=== PATIENT | male | born 1980 | race Caucasian/White ===

== ENCOUNTER 2016-05-19 15:25 | Day surgery (SDC) | payer MEDICAID ==
[2016-05-19] VITALS (11 sets, daily range): BP systolic 126–151; BP diastolic 76–94; PULSE 113–121; RESP 9–20; O2SAT 93–100
[~2016-05-19] VITALS: Ht 182.9 cm; Wt 99.1 kg
--- NOTE | 2016-05-19 17:28 | ED.REPORT ---
HPI- Male Date of Service May 19, 2016 ED Provider: Dr. Corbin Pt is a 35 y/o male presenting to the ED c/o foreskin pain onset 1 week ago. He states that his foreskin has been unable to retract over his penis with associated erythema and pain for 1 week. He was sent here by a Urology clinic because the urologist was unable to reduce the foreskin in the clinic without analgesia. Pt denies fever, chills. Nursing Notes Stated Complaint: PAIN IN GROIN Chief Complaint: General Complaint Nursing Notes Reviewed: Yes Allergies: Coded Allergies: No Known Drug Allergies (Verified Allergy, Unknown, 05/19/16) Scheduled PRN Hydrocodone-Acetaminophen 5-325 mg (Hydrocodone-Acetaminophen 5-325 mg) 1 Each Tablet 1 TABLET PO Q4H PRN PRN For Pain General Time Seen by MD: 17:27 Chief Complaint Foreskin problem... (Unable to retract) Hx Obtained From: Patient Arrived By: Walk-in Onset Occurred: 1 week ago Symptom Duration: Since onset Location: : Penis Quality: Painful Severity: Current: Moderate Severity: Maximum: Moderate Past Medical History Past Medical History None reported Past Surgical History None reported Smoking History Unknown if Ever Smoker Ambulatory Status Independent Review of Systems Review of Systems Note: +foreskin pain Constitutional: Denies: Chills, Fever Skin: Reports Rash Complete sys rev & neg: except as marked. Physical Exam Initial Vital Signs Vital Signs (First) Date Time Temp Pulse Resp B/P Pulse Ox O2 Delivery O2 Flow Rate FiO2 05/19/16 15:33 37.0 120 16 137/79 99 Room Air Initial VS: Reviewed, Vital signs abnormal Head / Eyes: Atraumatic, Normocephalic, PERRL ENT: Mucous membranes moist, Conjunctiva normal, No scleral icterus Neck: Supple, Full range of motion Respiratory: No respiratory distress Cardiovascular: Intact distal pulses Abdomen / GI: Soft, Non-tender Skin: Warm, Dry, No cyanosis Neurologic: Alert, Oriented, Nonfocal Psychiatric: Mood/affect normal, Behavior normal, Normal thought content Male Genitourinary: Atraumatic Phimosis present Swollen glans Diffuse erythema Re-Eval/Medical Decision Med Decision/Clinical Course 35 yo m with paraphimosis x 1 week. Urology, Dr Becker consulted and unable to reduce in ER. Will go to OR for surgical intervention. Consultation : Referral / Consult Name: Ramón Becker MD Consulted With: Urology Call Returned at: 17:34 Forensic Science Technician: Will see patient, Agrees with eval, Agrees with plan Note: He will come to the ED to attempt to reduce the foreskin with aid of analgesia. Counseled Regarding: Diagnosis, Lab results, Need for follow-up, When/why to return to ED Discharge & Departure Impression: Primary Impression: Phimosis Disposition: Home Discharge Condition All VS Reviewed: Yes Condition: Stable Referrals: Ramón Becker MD [facility] Scribe Attestation Portions of this note were transcribed by Gustavo Joy. I, Dr. Corbin personally performed the history, physical exam and medical decision-making; I reviewed and confirmed the accuracy of the information in the transcribed note. Signed by Maria Alejandra Turpin, 05/19/16 - 1800 copies to: Ramón Becker MD, Ben M MD May 19, 2016 17:28 GUSTAVO JOY May 19, 2016 17:38
[2016-05-19] MEDS ORDERED: HYDROmorphone 0.5 mg/0.5 mL iSecure Syringe IVPUSH PRN (18:40)
[2016-05-19] MEDS ORDERED: HYDR-4003 PO (18:43)
[2016-05-19] MEDS ORDERED: fentaNYL-PF 50 mCg/mL 2 mL Inj ONE (19:18)
[2016-05-19] MEDS ORDERED: Propofol 10,000 mCg/mL 20 mL Inj ONE ×2 (19:18)
[2016-05-19] MEDS ORDERED: Lidocaine PF 1% 30 mL Inj ONE (19:18)
[2016-05-19] MEDS ORDERED: Ondansetron 2 mg/mL 2 mL Inj ONE ×2 (19:18)
[2016-05-19] MEDS ORDERED: Lactated Ringer's 1,000 ML IV SCH (19:48)
[2016-05-19] MEDS ORDERED: Lactated Ringer's 500 ML IV PRN (19:48)
--- NOTE | 2016-05-19 19:48 | PCM.HPANE ---
Patient Data Date of Service: May 19, 2016 Surgeon Admitting Provider: Attending Provider:Ramón Becker MD Primary Care Physician:Rahul Other Provider:Sarah Richard Anesthesia Reason for Visit Phimosis Ht/WT & BMI Height (Feet): 6 Height (Inches): 0 Weight (Kilograms): 99.09 Body Mass Index Allergies Coded Allergies: No Known Drug Allergies (Verified Allergy, Unknown, 05/19/16) Diabetes History Hx Diabetes?: No MRSA MRSA: No Medications Hypertension Medication: No Home Meds Incl Beta Tyler: No Active Scripts Hydrocodone-Acetaminophen 5-325 mg 1 Each Tablet1 Tablet PO Q4H PRN For Pain # 10 TABLET Prov:Michele Corbin MD 05/19/16 History History of ENT Problems?: No Hx of Heart Problems?: No Cardiovascular History: Denies:: Congestive Heart Failure Hypertension Hx of Respiratory Problem?: No Respiratory History: Denies:: Tuberculosis Hx Neurologic Problems?: No Hx of GI Problems?: No Hx of Problems?: No Other History/Comment phimosis Hx Musculoskeletal Problems?: No Hx of Psycho/Social Problems?: No Hx Surgeries?: No Hx Any Other Health Problems?: No Hx Diabetes: No Hx Alcohol Use: NoHx Substance Use: Yes (meth, last 7 days ago) Smoking Status: Unknown if Ever Smoker Have You Smoked inLast 12 mo: Yes Stop/Bang Treated for Sleep Apnea?: No Do You Have a CPAP Machine?: No MARIA INES Risk Assessment: Low Risk, <3 Yes Risk Assessment Category Category 1A: Patient has history of documented sleep apnea, and HAS NOT received any narcotic, sedative or anesthesia administration during this stay. Category 1B: Patient has history of documented sleep apnea, and HAS received any narcotic , sedative or anesthesia administration during this stay Category 2: Patient has SUSPECTED Obstructive Sleep Apnea, and HAS received any narcotic , sedative or anesthesia administration during this stay. Category 3: Patient has SUSPECTED Obstructive Sleep Apnea and HAS NOT received narcotic, sedative or anesthesia administration during this stay. Category 4: Outpatient in Procedural Areas with known sleep apnea or who screen positive for High Risk via the STOP/BANG questionnaire. Exam Exam Vital Signs Vital Signs Date Time Temp Pulse Resp B/P Pulse Ox O2 Delivery O2 Flow Rate FiO2 05/19/16 19:22 37.2 113 20 151/89 93 Room Air 2/23/17 19:21 37.2 113 20 151/89 93 Room Air 05/19/16 15:33 37.0 120 16 137/79 99 Room Air General Appearance: Alert, Oriented X3, Cooperative HEENT/AIRWAY: MP 3, Neck Movement (OK), Mouth Opening (Wide) Lungs: Clear to Auscultation, Normal Air Movement Heart: Regular Rate/Rhythm, Normal S1, Normal S2 Plan Impression Patient chart reviewed, patient interviewed and anesthestic plan with risks, benefits, and alternatives discussed, and informed consent obtained. NPO Status: > 8 hours ASA Physical Status: ASA2 Mod Systemic Disease Anesthetic Plan: GA Bene/Risks/Altern/Consents: Yes HP Complete Prior to Induction: Yes Jelani Macias MD May 19, 2016 19:48
[2016-05-19] MEDS ORDERED: EPHEDrine Sulfate 50 mg/mL Inj IVPUSH PRN (19:50)
[2016-05-19] MEDS ORDERED: MetoCLOpramide 5 mg/mL 2 mL Inj IVPUSH PRN (19:50)
[2016-05-19] MEDS ORDERED: HYDROmorphone 1 mg/mL Inj IVPUSH PRN (19:50)
[2016-05-19] MEDS ORDERED: fentaNYL-PF 50 mCg/mL 2 mL Inj IVPUSH PRN (19:50)
[2016-05-19] MEDS ORDERED: Labetalol 5 mg/mL 4 mL Inj IV PRN (19:50)
[2016-05-19] MEDS ORDERED: Phenylephrine 10,000 mCg/mL Inj IVPUSH PRN (19:50)
[2016-05-19] MEDS ORDERED: Dexamethasone 4 mg/mL Inj IVPUSH PRN (19:50)
[2016-05-19] MEDS ORDERED: Atropine 0.4 mg/mL Inj IVPUSH PRN (19:50)
[2016-05-19] MEDS ORDERED: hydrALAZINE 20 mg/mL Inj IVPUSH PRN (19:50)
[2016-05-19] MEDS ORDERED: Ondansetron 2 mg/mL 2 mL Inj IVPUSH PRN (19:50)
[2016-05-19] MEDS ORDERED: Bupivacaine-MPF 0.25% 30 mL Inj INFILTRATE ONE (19:54)
--- NOTE | 2016-05-19 20:37 | HP ---
[address] [address] HISTORY AND PHYSICAL PATIENT: SRINIVAS FRY : 1980 MR#: [id number] ADMIT: 05/19/2016 JOB ID: [id number] CHIEF COMPLAINT: Penile pain and swelling. HISTORY OF PRESENT ILLNESS: The patient is a 35-year-old male with penile pain and swelling. The patient states that one week ago he became unable to reduce the foreskin and thus had inability to reduce foreskin and developed penile swelling and subsequently penile pain. The patient states that this penile swelling and pain have been worsening. The patient initially presented to the Urgent Care in [place] where manual reduction of paraphimosis was unsuccessful. The patient now presents to the emergency department here at [facility]. The patient reports penile pain, penile swelling, inability to reduce the foreskin. The patient reports no dysuria, no gross hematuria. Mild difficulty voiding. No fever, no chills. No nausea, no vomiting. The patient reports no prior history of problems with the foreskin. No prior history of paraphimosis. The patient is uncircumcised. PAST MEDICAL HISTORY: None. PAST SURGICAL HISTORY: None. MEDICATIONS: None. ALLERGIES: No known drug allergies. SOCIAL HISTORY: The patient is a smoker. FAMILY HISTORY: Noncontributory. REVIEW OF SYSTEMS: Constitutional: No fever, no chills. GI: No nausea, no vomiting. PHYSICAL EXAMINATION: Vital signs: Afebrile, temperature 37.0 degrees Celsius. Heart rate 120, respiratory rate 16, BP 137/79, O2 sat 99% on room air. General: Well-developed well-nourished male in no acute distress. HEENT: Head: Normocephalic, atraumatic. Eyes: Extraocular muscles intact. Neck: Supple. Chest: No use of accessory muscles. Nonlabored respirations. No retractions. Clear to auscultation bilaterally. Heart: Positive for tachycardia. Regular rhythm. Abdomen: Soft, nondistended, nontender. No palpable masses. No rebound, no guarding. Skin: Warm and dry. : Testes bilaterally descended. No masses. Scrotum normal. Urethral meatus normal. Penis uncircumcised. Moderate to severe distal foreskin and glanular edema with foreskin seen to be in the retracted position with a small cut in the foreskin seen superficially on the dorsal aspect. Neurologic: Sensation grossly intact to touch. Normal speech. Psychiatric: Alert and oriented x3. Normal mood and affect. LABORATORIES: None. BEDSIDE PROCEDURE NOTE: Patient was given morphine sulfate IV and subsequently given Dilaudid IV for pain medication. The paraphimosis was attempted to be reduced manually, first by compressing the edema in the foreskin and glans, and then manually attempting to reduce the paraphimosis; however, this was unsuccessful. Then ice was applied to the penis by placing the penis within a glove filled with ice for a period of 5-10 minutes. The ice was removed and the edema was compressed in the glans and the foreskin and the foreskin was again attempted to be reduced manually; however, this was unsuccessful. ASSESSMENT: Significant paraphimosis, status post unsuccessful reduction of paraphimosis at the bedside. PLAN: The risks, benefits, and alternatives of surgery, specifically reduction of paraphimosis and dorsal slit under anesthesia, were discussed with the patient. All questions were answered. The patient wishes to have surgery as recommended. The patient has not had anything to eat or to drink since this morning and the patient has been placed on n.p.o. status. The patient will have urgent surgery this evening, specifically reduction of paraphimosis and dorsal slit. Will give the patient Ancef IV antibiotics preoperatively. The patient will be able to be discharged home postoperatively. The case was discussed with ER Dr. Michele Corbin. SYED
[2016-05-19] MEDS ORDERED: Lactated Ringer's 1,000 ML IV ONE (21:05)
--- NOTE | 2016-05-19 21:22 | PCM.SURGPO ---
Immediate Operative Note Date of Surgery: May 19, 2016 Pre Operative Diagnosis Paraphimosis Post Operative Diagnosis Paraphimosis Procedure Dorsal slit, circumcision, and reduction of paraphimosis Surgeon and Project Manager Surgeon: Ramón Becker MD Assistants: None Findings Significant paraphimosis and moderate-severe distal foreskin and glanular edema were seen. Paraphimosis was initially unable to be reduced. Dorsal slit was performed. Paraphimosis was subsequently able to be reduced, however, foreskin would not remain in reduced position. Circumcision was performed. Complications There were no periprocedural complications identified. Surgical Specimen Removed: Yes Specimen sent to Pathology: Yes Surgical Specimen description: Foreskin Anesthetic Administered: GA Grafts, Implants: None Output, Estimated Blood Loss: <5 Blood Admin during surgery: No Additional information Patient to be discharged home when stable, to return to see me in the office in 1-2 weeks for post-op visit. Ramón Becker MD May 19, 2016 21:22
--- NOTE | 2016-05-19 21:23 | PCM.ANEP1 ---
Post Anesthesia Phase 1 PACU Phase 1 Assessment Date of Service: May 19, 2016 Vital Signs Vital Signs Date Time Temp Pulse Resp B/P Pulse Ox O2 Delivery O2 Flow Rate FiO2 05/19/16 21:20 36.7 119 9 148/87 100 Simple Mask 10 05/19/16 19:22 37.2 113 20 151/89 93 Room Air 05/19/16 19:21 37.2 113 20 151/89 93 Room Air 05/19/16 15:33 37.0 120 16 137/79 99 Room Air Anesthetic Administered: GA Level of Alertness: Sleeping, hard to arouse DAWN's with Equal Strength: Yes Pain: No Pain Scale Score: 0 Oxygen Delivery: Simple Mask Lungs: Normal Air Movement Jelani Macias MD May 19, 2016 21:23
--- NOTE | 2016-05-19 21:30 | PCM.ANEP2 ---
Post Anesthesia Evaluation ASA/CMS Post Anesthesia Date of Service: May 19, 2016 VS in Patient's Normal Range?: Yes Resp Stable; Airway Patent?: Yes CV Function & Hydration Stable: Yes Mental Status Recovered?: Yes Pain control Satisfactory?: Yes N/V Control Satisfactory?: Yes Jelani Macias MD May 19, 2016 21:30
--- NOTE | 2016-05-19 21:37 | PCM.DISURG ---
Surgical Discharge Instruction Date of Service May 19, 2016 Dates of Hospitalization Date of Hospital Admission May 19, 2016 Providers Admitting Physician: Ramón Becker MD Primary Care Physician: Rahul Attending Physician: Ramón Becker MD Discharge Diagnosis Discharge Diagnosis Paraphimosis Post Operative diagnosis Paraphimosis Diet Discharge Diet: No restrictions Activity Discharge Activity-General: Try not to overdue, No driving while taking narcotic, Other (No sexual activity for 4 weeks) Dressing and Incisional Care Dressing Care: Keep dressing clean, dry & intact, Other (Remove dressing in 2 days, then start applying Bacitracin antibiotic ointment to wound 3 times a day) Hygiene: May shower after (2 days), Other (No bath/pool/spa for 4 weeks) Follow Up Plan Follow-up Provider (F9): Ramón Becker MD Follow-up appointment: Weeks (1-2 weeks for post-op visit) Call your provider for: Fever, Chills, Vomiting, Discharge @ incision, pus discharge, Other (Pain uncontrolled by pain medications) Ramón Becker MD May 19, 2016 21:37
[2016-05-19] MEDS ORDERED: HYDROcodone-APAP 5-325 mg Tablet PO PRN (21:40)
--- NOTE | 2016-05-19 23:14 | NUR ---
Recovery and Discharge Pt arrived to room 1026 at 2205. Alert and fully oriented, dressing clean and dry, denies significant pain. Discussed d/c instructions and wound care; discussed warning signs which would indicate need to contact provider or return to ED. Pt able to void without problem meeting d/c criteria. IV d/c'd intact. All questions answered.Medicated with 2 Percocet for pain management. Discharged into care of family with all personal belongings, Bacitracin, scrips and wound care instructions at 2245.
--- NOTE | 2016-05-20 11:29 | OP ---
[address] [address] OPERATIVE REPORT PATIENT: SRINIVAS FRY : 1980 MR#: [id number] ADMIT: 05/19/2016 JOB ID: [id number] DATE OF SURGERY: 05/19/2016 PREOPERATIVE DIAGNOSIS(ES): Paraphimosis. POSTOPERATIVE DIAGNOSIS(ES): Paraphimosis. PROCEDURE: 1. Circumcision. 2. Dorsal slit. 3. Reduction of paraphimosis. SURGEON: Ramón Becker MD. ASSISTANTS: None. ANESTHESIA: General. ESTIMATED BLOOD LOSS: Less than 5 mL. SPECIMENS: Foreskin. DRAINS: None. COMPLICATIONS: None. CONDITION: Stable. FINDINGS: Significant paraphimosis and moderate to severe distal foreskin and glanular edema were seen. Paraphimosis was initially unable to be reduced. A dorsal slit was performed. The paraphimosis was subsequently able to be reduced. However, the foreskin would not remain in reduced position. Circumcision was performed. INDICATIONS: The patient is a 35-year-old male with significant paraphimosis, status post unsuccessful reduction of paraphimosis at the bedside. The patient now presents for reduction of paraphimosis and dorsal slit procedure. DESCRIPTION OF PROCEDURE: The patient was brought to the operating room and placed supine on the operating room table. The patient was given Ancef IV antibiotics. General anesthesia was administered. The patient was left in supine position. The patient was prepped and draped in a standard surgical fashion. Significant paraphimosis and moderate to severe distal foreskin and glanular edema were seen. Paraphimosis was initially unable to be reduced. Then, a dorsal slit was performed by making an incision at the constricted area on the dorsal aspect of the foreskin. This was performed by using a #15 blade sharply. The paraphimosis was subsequently able to be reduced. However, the foreskin would not remain in reduced position. Thus, decision to perform circumcision was made. Circumcision was performed. First, with the foreskin in the reduced position, a line was marked at the outline of the coronal sulcus. Then, the foreskin was retracted, and a line was marked at approximately 0.5-1 cm proximal to the coronal sulcus. Incision was made at this line sharply using a #15 blade through skin, subcutaneous tissue and dartos fascia down to Hernandez's fascia. The foreskin was reduced. Incision was made at the previously created line through skin, subcutaneous tissue and dartos fascia down to Hernandez's fascia sharply. Then, the foreskin was incised on the dorsal aspect using Metzenbaum scissors. The foreskin was excised using Bovie electrocautery and sent to Pathology for permanent specimen. Excellent hemostasis was achieved using Bovie electrocautery. The wound was thoroughly irrigated. Then, the skin edges were reapproximated on the dorsal aspect of the penis using a simple interrupted 3-0 chromic suture. Then, the foreskin was reapproximated on the ventral aspect of the penis using a U-suture of 3-0 chromic. The skin edges were reapproximated on the right side using a running 3-0 chromic suture. Skin edges were reapproximated on the left side using a running 3-0 chromic suture. Local anesthesia in the form of 0.25% plain Marcaine was administered with a penile ring block. The skin was cleaned and dried. Bacitracin antibiotic ointment and sterile dressing were applied. The patient was awakened from general anesthesia and transferred to the recovery room in stable condition. The patient tolerated the procedure well. Plan is for the patient to be discharged home when stable and to return to see me in the office in 1-2 weeks for postoperative visit. SYED
--- NOTE | 2016-05-23 15:31 | PATH ---
SURGICAL PATHOLOGY Attending Physician:Ramón Becker MD CASE STATUS: Signed Out PATIENT NAME: SRINIVAS FRY PID: [id number] : 1980 DATE COLLECTED:05/19/2016 00:00 SPECIMEN: Foreskin CLINICAL HISTORY: PARAPHIMOSIS 1). FORESKIN FINAL DIAGNOSIS: 1.FORESKIN: SQUAMOUS MUCOSA CONSISTENT WITH FORESKIN WITH PARAKERATOSIS AND CHRONIC ACTIVE INFLAMMATION, CONSISTENT WITH PHIMOSIS. NEGATIVE FOR DYSPLASIA AND MALIGNANCY. ICD10 CODE N47.1 GROSS DESCRIPTION: The specimen is received in formalin, labeled with the patient's name, sublabeled as foreskin and consists of an unoriented piece of white skin (9.2 x 2.9 x 1.1 cm). The foreskin is hernandez with normal folds and is focally pale and flat. The nodules, masses or lesions are identified. Ink code: black-resection margin. Section code: (A, B) foreskin, serially sectioned, jewelry sales representative. 05/21/16 MICRO DESCRIPTION: See diagnosis. ICD-9 CODES: CPT CODES: 1: 17053 Electronically Signed Out Iesha Richard MD [facility] Pathology [facility] [address], [place] [address] Technical component performed at [facility], [address] [place] [address] Ave[address], [place], [address]
== END 2016-05-19 22:45 | disposition home or self-care (01) ==
LOC: SED 15:25 → SAS 19:17 → OSC 22:05 → SAS 22:45
PROVIDERS: ATTEND Urology
DX: N47.2 Paraphimosis (principal); N48.89 Other specified disorders of penis; F17.210 Nicotine dependence, cigarettes, uncomplicated; F15.90 Other stimulant use, unspecified, uncomplicated
CPT/HCPCS: 54161; 96374; 96375; 99284; J0690; J1170; J2250; J2270; J2405; J3010; J7120